=== PATIENT | female | born 1950 | race Caucasian/White ===

== ENCOUNTER → 2017-01-16 | Outpatient (CLI) | payer OTHER ==
[~2017-01-16] MED LIST: ALBUTEROL IH; ANUSOL SUPP1 SUPP PR; METOPROLOL TAR25 MG; MULTIPLE VITAMI1 T11; NAPROXEN500 M1 PO; SINGULAIR PO; SPIRIVA18 MCG INH; SYMBICORT IH; WELLBUTRIN SR150 MG PO; ZANAFLEX4 M1 PO; ZOLOFT; ZOLOFT PO
--- NOTE | ~2017-01-16 | CT2 ---
[facility] A Service of [facility] RADIOLOGY TEXT RESULTS PATIENT: QUIN[facility]RE[facility]ANA [facility] UN[facility] #: [id number] AGE: [address]: JILLIAN FISHER APRN SEX: F ORDER DR: [id number] [facility] [address] [place], [place] [address] [id number] O MR#: [id number] #: [id number] NAME: QUINN ORELLANA : 1950 SEX: F STUDY DATE/TIME: 01/16/2017 14:03 UNIT: [facility] ROOM: STUDY DESCRIPTION: CT Abd and Pelv W Cont Attending Physician: Jillian Fisher Referring Physician: Jillian Fisher Ordering Physician: Jillian Fisher A.P.R.N. Primary Care Physician: Cristina Baeza Aprn [facility] MEDICAL IMAGING REPORT This report is preliminary unless electronic signature is present EXAM CT abdomen and pelvis with contrast DATE 01/16/2017 HISTORY Right upper quadrant abdominal pain for [id number] months. Hepatitis C diagnosed 20 years ago. Constipation. Former smoker. COPD. COMPARISON Abdominal ultrasound 10/22/2009. No prior CT at this institution for comparison. PROCEDURE 5 mL axial images performed from the lung bases through the lesser trochanters after intravenous and enteric contrast administration. Sagittal and coronal reformatted images were obtained. This CT exam was performed with one or more of the following radiation dose reduction techniques: automatic exposure control, adjustment of mA and/or kV according to patient size, and iterative reconstruction. FINDINGS Abdomen findings: Liver has a normal appearance. No focal liver lesions identified. Cholecystectomy changes. Spleen, pancreas, adrenals and kidneys within normal limits. Lung bases are clear. Bowel appears grossly nonthickened, nondilated, noninflamed. There is moderate calcific atherosclerosis within the abdominal aorta and common iliac arteries, without aneurysm. Pelvis findings: Urinary bladder, uterus and rectum are normal. No pelvic adenopathy or free fluid is seen. Chronic-appearing compression deformity of L3 and to a lesser degree at the superior endplate of L1. No [facility] A Service of [facility] RADIOLOGY TEXT RESULTS PATIENT: QUINN ORELLANA LOCATION: [facility] : 52 UNIT #: [id number] AGE: [address]: JILLIAN FISHER APRN SEX: F ORDER DR: acute osseous abnormalities are identified. Lung bases appear clear. IMPRESSION 1. No acute findings in the abdomen or pelvis to explain the patient's right upper quadrant abdominal pain. 2. Normal CT appearance of the liver. 3. Cholecystectomy. 4. Appendix is not visualized, but no pericecal inflammation is seen. 5. Chronic-appearing compression deformity of L3 and to a lesser degree in the superior plate of L1. Degenerative disc endplate changes at L3-4. Dictated by... Antonieta Rey M.D. THIS IS AN ELECTRONICALLY VERIFIED REPORT Antonieta Rey M.D. at 01/19/2017 8:31 AM [facility]/jd TD: 01/16/2017 20:59 JOB #: [id number] MEDICAL IMAGING REPORT Page 1 of 1 COPY
[2017-01-16 15:51] LABS: POC - CREATININE 0.83 mg/dL (0.44-1.03); POC - GFR >60.0 mL/min (>60)
== END | disposition home or self-care (01) ==
LOC: CCAT 12:38
PROVIDERS: Nurse Practitioner Family
DX: R10.84 Generalized abdominal pain (principal); M51.36 Other intervertebral disc degeneration, lumbar region; M43.8X6 Other specified deforming dorsopathies, lumbar region
CPT/HCPCS: 74177; 82565; Q9967

== ENCOUNTER 2017-02-05 07:22 | Emergency (ER) | payer OTHER ==
[~2017-02-05 07:22] MED LIST changes: -ZOLOFT
[2017-02-05] MEDS ORDERED: ZOLOFT (07:28)
== END 2017-02-05 08:30 | disposition home or self-care (01) ==
LOC: SED 07:22
DX: M54.6 Pain in thoracic spine (principal); M79.601 Pain in right arm; R03.0 Elevated blood-pressure reading, without diagnosis of hypertension; Z86.19 Personal history of other infectious and parasitic diseases; Z90.49 Acquired absence of other specified parts of digestive tract
CPT/HCPCS: 96372; 99283; J1885

== ENCOUNTER 2017-02-14 20:11 | Emergency (ER) | payer OTHER ==
[~2017-02-14 20:11] MED LIST changes: +ZOLOFT
== END 2017-02-14 21:33 | disposition home or self-care (01) ==
LOC: SED 20:11
DX: S39.012A Strain of muscle, fascia and tendon of lower back, initial encounter (principal); M54.31 Sciatica, right side; J44.9 Chronic obstructive pulmonary disease, unspecified; F17.200 Nicotine dependence, unspecified, uncomplicated; Z79.899 Other long term (current) drug therapy; X58.XXXA Exposure to other specified factors, initial encounter; Y92.009 Unspecified place in unspecified non-institutional (private) residence as the place of occurrence of the external cause
CPT/HCPCS: 96372; 99283; J1885

== ENCOUNTER 2017-02-25 07:35 | Emergency (ER) | payer OTHER ==
--- NOTE | ~2017-02-25 | EKG ---
PATIENT: QUINN ORELLANA UNIT #: [id number] Ventricular Rate: 77 BPM Atrial Rate: 77 BPM P-R Interval: 204 ms QRS Duration: 90 ms Q-T Interval: 422 ms QTC Calculation(Bezet): 477 ms P [place]: 63 degrees Calculated R [place]: 71 degrees Calculated T [place]: 68 degrees Diagnosis Line: Normal sinus rhythm Diagnosis Line: Normal ECG Diagnosis Line: When compared with ECG of 23-MAY-2015 11:05, Diagnosis Line: (unconfirmed) Diagnosis Line: No significant change was found Diagnosis Line: Confirmed by KWAN CASTRO MD ([id number]) on Diagnosis Line: 02/27/2017 11:05:30 AM INTERPRETING MD: MATTHEW MANRIQUE
[2017-02-25 09:02] LABS: BASOPHIL# 0.1 X10e3 (0-0.3); BASOPHIL% 1.2 % (0-2.5); EOSINOPHIL# 0.3 X10e3 (0-0.7); EOSINOPHIL% 4.5 % (0.0-7.0); HEMATOCRIT 26.5 % (35.0-45.0); HEMOGLOBIN 8.1 gm/dL (12.0-16.0); LYMPHOCYTE% 35.3 % (17.0-45.0); MEAN CELL VOLUME 69.1 FL (83-96); MEAN CORPUSCULAR HGB CONC 30.4 g/dL (30-36); MONOCYTE# 0.4 X10e3 (0-1.0); MONOCYTE% 7.3 % (3.0-12.0); NEUTROPHIL% 51.7 % (40-75); PLATELET COUNT 164 X10e3 (140-420); RED BLOOD COUNT 3.83 X10e (3.90-5.30); RED CELL DISTRIBUTION WIDTH 20.4 % (11.0-15.5); WHITE BLOOD COUNT 5.8 X10e3 (4.0-10.5)
[2017-02-25 09:06] LABS: DIFF IND NO
[2017-02-25 09:17] LABS: PARTIAL THROMBOPLASTIN TIME 24.8 SECONDS (23.5-31.3); PROTHROMBIN TIME (PATIENT) 10.7 SECONDS (10.0-11.7)
[2017-02-25 09:36] LABS: BILIRUBIN,TOTAL 0.6 mg/dL (0.2-2.0); CALCIUM SERUM 9.5 mg/dL (8.4-10.2); CREATININE SERUM 0.5 mg/dL (0.6-1.4); GLOM FILT RATE Estimated 101.6 mL/min (>60); PROTEIN TOTAL SERUM 7.6 g/dL (6.0-8.3)
[2017-02-25 10:57] LABS: POC - CKMB 2.8 ng/mL (0.0-7.9); POC - TROPONIN <0.05 ng/mL (<=0.05)
== END 2017-02-25 11:13 | disposition home or self-care (01) ==
LOC: CED 07:35
PROVIDERS: Emergency Medicine
DX: D64.9 Anemia, unspecified (principal); K64.9 Unspecified hemorrhoids; Z86.19 Personal history of other infectious and parasitic diseases
CPT/HCPCS: 36415; 80053; 82553; 84484; 85025; 85610; 85730; 93005; 99284